=== PATIENT | female | born 1990 | race Two or more races ===

== ENCOUNTER 2020-04-17 21:57 | Emergency (ER) | payer OTHER ==
[2020-04-17 22:11] VITALS: BP 139/74; PULSE 75; TEMP 98.2; BMI 38.0
== END 2020-04-18 | disposition left against medical advice (07) ==
LOC: JER 21:57
DX: T65.94XA Toxic effect of unspecified substance, undetermined, initial encounter (principal)
CPT/HCPCS: 99281-25